=== PATIENT | male | born 2005 | race Caucasian/White ===

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

== ENCOUNTER 2024-08-26 01:11 | Emergency (ER) | payer BC, MEDICAID ==
[2024-08-26] MEDS: Lidocaine 1% 10 ML MDV INJECT ONE (01:39)
[2024-08-26] MEDS: Diphtheria,Pertussis(Acell),Tetanus Vaccine 0.5 ML Syringe IM ONE (01:39)
[2024-08-26] MEDS: Iopamidol 755 MG/ML 500 ML Multipack Bottle IVPUSH ONE (02:10)
== END 2024-08-26 03:12 | disposition home or self-care (01) ==
LOC: MW.ED 01:11
DX: S09.90XA Unspecified injury of head, initial encounter (principal); S51.012A Laceration without foreign body of left elbow, initial encounter; S00.432A Contusion of left ear, initial encounter; Z23 Encounter for immunization; Y04.2XXA Assault by strike against or bumped into by another person, initial encounter
CPT/HCPCS: 12002; 70450; 70486; 70496; 70498; 90471; 90715; 99283; J2003; Q9967; 99284